=== PATIENT | male | born 1960 | race Hispanic/Latino ===

== ENCOUNTER 2018-02-03 09:09 | Emergency (ER) | payer OTHER ==
[2018-02-03] MEDS ORDERED: AMOXICILLIN500 MG PO (10:01)
[2018-02-03] MEDS ORDERED: NAPROSYN500 MG PO (10:01)
[2018-02-03 10:15] VITALS: BP 118/76
== END 2018-02-03 10:15 | disposition home or self-care (01) | DRG 605 ==
LOC: ED 09:09
DX: S61.411A Laceration without foreign body of right hand, initial encounter (principal); L08.9 Local infection of the skin and subcutaneous tissue, unspecified; S63.91XA Sprain of unspecified part of right wrist and hand, initial encounter; W22.8XXA Striking against or struck by other objects, initial encounter